=== PATIENT | female | born 1985 | race Hispanic/Latino ===

== ENCOUNTER 2019-08-09 18:16 | Emergency (ER) | payer OTHER ==
[~2019-08-09] VITALS: Ht 162.6 cm; Wt 63.5 kg
[2019-08-09 19:31] LABS: BASOPHILS # (AUTO) 0.1 (0.0-0.1); BASOPHILS % 0.5 % (0.0-1.0); EOSINOPHILS # (AUTO) 0.6 (0.0-0.4); EOSINOPHILS % 4.7 % (0.0-6.0); HEMATOCRIT 37.6 % (34.2-44.1); HEMOGLOBIN 12.6 g/dL (12.0-16.0); LYMPHOCYTES # (AUTO) 3.6 (1.0-3.2); LYMPHOCYTES % 30.8 % (18.0-39.1); MEAN CORPUSCULAR HEMOGLOBIN 30.1 pg (28-32); MEAN CORPUSCULAR HGB CONC 33.5 g/dL (31-35); MEAN CORPUSCULAR VOLUME 89.7 fL (81-99); MONOCYTES # (AUTO) 0.7 (0.2-0.8); NEUTROPHILS # (AUTO) 6.8 (2.1-6.9); NEUTROPHILS % 57.7 % (38.7-80.0); PLATELET COUNT 332 x10e3/uL (140-360); RED BLOOD COUNT 4.19 x10e6/uL (3.6-5.1); RED CELL DISTRIBUTION WIDTH 13.5 % (11.7-14.4)
[2019-08-09 19:52] LABS: BILIRUBIN,URINE NEGATIVE (NEGATIVE); CLARITY,URINE SL CLOUDY (CLEAR); COLOR,URINE YELLOW (YELLOW); KETONES,URINE NEGATIVE (NEGATIVE); LEUKOCYTE ESTERASE ,URINE NEGATIVE (NEGATIVE); NITRITE,URINE POSITIVE (NEGATIVE); PROTEIN,URINE DIPSTICK NEGATIVE (NEGATIVE); URINE UROBILINOGEN 0.2 mg/dL (0.2 - 1)
[2019-08-09 20:03] LABS: BACTERIA,URINE MANY /HPF; WBC,URINE (MAN) 0-5 /HPF (0-5)
[2019-08-09 20:27] VITALS: BP 107/68
== END 2019-08-09 20:34 | disposition home or self-care (01) ==
LOC: ER 18:16
DX: O20.0 Threatened abortion (principal); F17.200 Nicotine dependence, unspecified, uncomplicated
CPT/HCPCS: 36415; 81001; 84702; 85025; 99283

== ENCOUNTER → 2019-09-27 | Outpatient (CLI) | payer OTHER ==
[~2019-09-27] MED LIST: IOPAMIDOL 370 MG/ML 200 ML INFUS..BTL INJ ONE; SODIUM CHLORIDE 0.9% 50ML 50 ML ONE
--- NOTE | 2019-09-27 17:44 | Diagnostic Imaging Report ---
EXAM: CT Abdomen and Pelvis WITH intravenous contrast INDICATION: Inguinal hernia COMPARISON: None. TECHNIQUE: Abdomen and pelvis were scanned utilizing a multidetector helical scanner from the lung base to the pubic symphysis after administration of IV contrast. Coronal and sagittal reformations were obtained. Routine protocol was performed. Scan was performed during portal venous phase. IV CONTRAST: 100mL of Isovue 370 ORAL CONTRAST: Water RADIATION DOSE: Total DLP: 615.5 mGy*cm Dose modulation, iterative reconstruction, and/or weight based adjustment of the mA/kV was utilized to reduce the radiation dose to as low as reasonably achievable. FINDINGS: LOWER THORAX: Normal. HEPATOBILIARY: No focal hepatic lesions. No biliary ductal dilatation. Status post cholecystectomy. SPLEEN: No splenomegaly. PANCREAS: No focal masses or ductal dilatation. ADRENALS: No adrenal nodules. KIDNEYS/URETERS: No hydronephrosis, stones, or solid mass lesions. PELVIC ORGANS/BLADDER: Unremarkable. PERITONEUM / RETROPERITONEUM: Trace free fluid in the pelvis. No free air. LYMPH NODES: No lymphadenopathy. VESSELS: Unremarkable. GI TRACT: No abnormal bowel thickening. No bowel obstruction. Normal appendix. BONES AND SOFT TISSUES: No acute osseous injury. No suspicious lytic or blastic lesions. IMPRESSION: No acute findings in the abdomen or pelvis. Signed by: Julian Hughes MD on 09/27/2019 5:41 PM
== END ==
LOC: CT 15:46
PROVIDERS: ATTEND Family Medicine
DX: R10.2 Pelvic and perineal pain (principal)
CPT/HCPCS: 74177; 81025; Q9967

== ENCOUNTER → 2020-01-19 | Outpatient (CLI) | payer BC ==
--- NOTE | 2020-01-19 10:15 | Diagnostic Imaging Report ---
EXAM: Focused Soft Tissue Ultrasound Evaluation of the right neck INDICATION: Right neck lymphadenopathy COMPARISON: None TECHNIQUE: Salas scale, color Doppler images of the right neck soft tissues were obtained. FINDINGS: There is a 8 x 3 mm physiologic appearing lymph node in the right neck in the patient's area of clinical concern. Compared to prior outside imaging, this lymph node is decreased in size, favoring a benign etiology. IMPRESSION: 8 x 3 mm physiologic appearing lymph node, decreased in size compared to outside imaging. Interval decrease in size favors a benign etiology. After discussion with the patient decision was made to forego biopsy at the present time. If clinical concern persists or the lymph node increases in size on future follow-up imaging, biopsy can be reconsidered. Signed by: Julian Hughes MD on 01/19/2020 10:14 AM
== END ==
LOC: US 08:16
PROVIDERS: ATTEND Family Medicine
DX: R59.0 Localized enlarged lymph nodes (principal)
CPT/HCPCS: 76536

== ENCOUNTER → 2021-12-19 | Outpatient (CLI) | payer BC | LOC: NM 10:11 | PROVIDERS: ATTEND Internal Medicine Gastroenterology | DX: R10.13 Epigastric pain (principal); E66.3 Overweight; Z71.3 Dietary counseling and surveillance | CPT/HCPCS: 78264; 81025; A9541 ==

== ENCOUNTER 2022-08-11 20:13 | Emergency (ER) | payer BC ==
[~2022-08-11] VITALS: Ht 162.6 cm; Wt 63.5 kg
[2022-08-11] MEDS ORDERED: KETOROLAC TROMETHAMINE 30 MG/ML VIAL IV STA (20:55)
[2022-08-11 21:01] LABS: BASOPHILS % 0.4 % (0.0-1.0); EOSINOPHILS # (AUTO) 0.4 (0.0-0.4); HEMATOCRIT 35.4 % (34.2-44.1); HEMOGLOBIN 10.8 g/dL (12.0-16.0); LYMPHOCYTES # (AUTO) 4.4 (1.0-3.2); LYMPHOCYTES % 55.3 % (18.0-39.1); MEAN CORPUSCULAR HEMOGLOBIN 26.3 pg (28-32); MEAN CORPUSCULAR HGB CONC 30.5 g/dL (31-35); MEAN CORPUSCULAR VOLUME 86.1 fL (81-99); MONOCYTES # (AUTO) 0.5 (0.2-0.8); MONOCYTES % 5.9 % (4.4-11.3); NEUTROPHILS # (AUTO) 2.6 (2.1-6.9); NEUTROPHILS % 33.1 % (38.7-80.0); PLATELET COUNT 341 x10e3/uL (140-360); RED BLOOD COUNT 4.11 x10e6/uL (3.6-5.1); RED CELL DISTRIBUTION WIDTH 16.3 % (11.7-14.4)
[2022-08-11 21:17] LABS: CLARITY,URINE HAZY (CLEAR); COLOR,URINE YELLOW (YELLOW); KETONES,URINE NEGATIVE (NEGATIVE); LEUKOCYTE ESTERASE ,URINE NEGATIVE (NEGATIVE); NITRITE,URINE NEGATIVE (NEGATIVE); PROTEIN,URINE DIPSTICK NEGATIVE (NEGATIVE); URINE UROBILINOGEN 0.2 mg/dL (0.2 - 1)
[2022-08-11 21:19] LABS: ALBUMIN 3.7 g/dL (3.5-5.0); ALBUMIN/GLOBULIN RATIO 1.1 (0.8-2.0); ANION GAP 13.7 mmol/L (8-16); CALCIUM 8.7 mg/dL (8.4-10.2); CREATININE, SERUM 0.73 mg/dL (0.57-1.11); POTASSIUM 3.7 mmol/L (3.5-5.1)
[2022-08-11 21:25] LABS: AMORPHOUS SEDIMENT,URINE MODERATE (FEW); BACTERIA,URINE FEW /HPF
[2022-08-11] MEDS ORDERED: PEPCID20 MG PO (23:00)
[2022-08-11 23:01] VITALS: BP 107/71
[2022-08-12] MEDS ORDERED: IOPAMIDOL 370 MG/ML 100 ML INFUS..BTL INJ ONE (04:41)
== END 2022-08-11 22:58 | disposition home or self-care (01) ==
LOC: ER 20:36
DX: R10.11 Right upper quadrant pain (principal)
CPT/HCPCS: 36415; 74177; 80053; 81001; 81025; 83690; 85025; 99284; J1885; Q9967

== ENCOUNTER 2023-03-07 18:17 | Inpatient (IN) | payer BC ==
[~2023-03-07] VITALS: Ht 162.6 cm; Wt 63.5 kg
[~2023-03-07 18:17] MED LIST changes: -IOPAMIDOL 370 MG/ML 200 ML INFUS..BTL INJ ONE; +PEPCID20 MG PO; -SODIUM CHLORIDE 0.9% 50ML 50 ML ONE
[2023-03-07] MEDS ORDERED: ONDANSETRON HCL INJ 2MG/ML 2ML 2 MG/ML VIAL IV STA (18:35)
[2023-03-07] MEDS ORDERED: FAMOTIDINE 20 MG/2 ML VIAL IV STA (18:35)
[2023-03-07] MEDS ORDERED: DONNATAL/LIDOCAINE/MAALOX 30 ML SUSP PO ONE (18:45)
[2023-03-07] MEDS ORDERED: SODIUM CHLORIDE 0.9% 1000ML 1,000 ML IV ONE ×2 (18:45→20:30)
[2023-03-07 18:50] LABS: BASOPHILS % 0.2 % (0.0-1.0); EOSINOPHILS # (AUTO) 0.1 (0.0-0.4); HEMATOCRIT 39.5 % (34.2-44.1); LYMPHOCYTES # (AUTO) 2.5 (1.0-3.2); LYMPHOCYTES % 20.3 % (18.0-39.1); MEAN CORPUSCULAR HEMOGLOBIN 27.5 pg (28-32); MEAN CORPUSCULAR HGB CONC 32.9 g/dL (31-35); MEAN CORPUSCULAR VOLUME 83.5 fL (81-99); MONOCYTES # (AUTO) 0.8 (0.2-0.8); MONOCYTES % 6.6 % (4.4-11.3); NEUTROPHILS # (AUTO) 8.6 (2.1-6.9); NEUTROPHILS % 71.6 % (38.7-80.0); PLATELET COUNT 377 x10e3/uL (140-360); RED BLOOD COUNT 4.73 x10e6/uL (3.6-5.1)
[2023-03-07 19:02] LABS: ALANINE AMINOTRANSFERASE 573 IU/L (0-55); ALBUMIN/GLOBULIN RATIO 1.1 (0.8-2.0); ALKALINE PHOSPHATASE 287 IU/L (40-150); ANION GAP 15.6 mmol/L (8-16); BLOOD UREA NITROGEN 9 mg/dL (7-26); BUN/CREATININE RATIO 13 (6-25); CALCIUM 9.1 mg/dL (8.4-10.2); CARBON DIOXIDE 23 mmol/L (22-29); CHLORIDE 102 mmol/L (98-107); CREATININE, SERUM 0.67 mg/dL (0.57-1.11); GLUCOSE 166 mg/dL (74-118); POTASSIUM 3.6 mmol/L (3.5-5.1); SODIUM 137 mmol/L (136-145)
[2023-03-07] MEDS ORDERED: MAGNESIUM/ALUMINUM/SIMETHICONE 30 ML UDC ONE (19:02)
[2023-03-07] MEDS ORDERED: BELLADONNA ALK/PHENOBARBITAL 5 ML UDC ONE (19:02)
[2023-03-07] MEDS ORDERED: LIDOCAINE VISC 2% SOLN 15 ML UDC ONE (19:02)
[2023-03-07] MEDS ORDERED: IOPAMIDOL 370 MG/ML 100 ML INFUS..BTL INJ ONE (19:11)
[2023-03-07] MEDS ORDERED: Morphine 4mg INJECTION 4 MG/ML INJ IV ONE ×2 (19:15→20:30)
[2023-03-07 19:20] LABS: CLARITY,URINE HAZY (CLEAR); COLOR,URINE YELLOW (YELLOW); LEUKOCYTE ESTERASE ,URINE TRACE (NEGATIVE); NITRITE,URINE POSITIVE (NEGATIVE); PROTEIN,URINE DIPSTICK 2+ (NEGATIVE)
[2023-03-07 19:21] LABS: BACTERIA,URINE MANY /HPF; KETONES,URINE TRACE (NEGATIVE); RBC,URINE 0-5 /HPF (0-5); URINE UROBILINOGEN 1 mg/dL (0.2 - 1)
[2023-03-07 19:22] LABS: EPITHELIAL CELLS,URINE FEW /LPF
[2023-03-07 20:14] LABS: LIPASE 9215 U/L (8-78)
[2023-03-07] MEDS ORDERED: DIPHENHYDRAMINE HCL INJ 50 MG/ML VIAL IV ONE (20:30)
[2023-03-07] MEDS ORDERED: METOCLOPRAMIDE HCL 10 MG/2ML VIAL IV ONE (20:30)
[2023-03-07] MEDS ORDERED: ONDANSETRON HCL INJ 2MG/ML 2ML 2 MG/ML VIAL IV PRN (21:00)
[2023-03-07] MEDS ORDERED: SODIUM CHLORIDE 0.9% 1000ML 1,000 ML IV SCH (21:00)
[2023-03-07 22:10] VITALS: BP 128/74
[2023-03-07 22:12] VITALS: BP 128/74
[2023-03-07 22:19] VITALS: BP 128/74
[2023-03-07 22:23] VITALS: BP 128/74
[2023-03-07 22:25] VITALS: BP 128/74
[2023-03-07 22:47] VITALS: BP 128/74
[2023-03-08] VITALS (8 sets, daily range): BP systolic 98–127; BP diastolic 62–80
[2023-03-08] MEDS ORDERED: ACETAMINOPHEN 325 MG TAB PO PRN (02:30)
[2023-03-08] MEDS ORDERED: MELATONIN 3 MG TAB PO PRN (02:30)
[2023-03-08] MEDS ORDERED: HYDRALAZINE HCL 20 MG/ML VIAL IV PRN (02:30)
[2023-03-08] MEDS ORDERED: Morphine 2mg Syringe 2 MG/ML SYR IV PRN (02:30)
[2023-03-08] MEDS ORDERED: GUAIFENESIN/DEXTROMETHORPHAN LIQD 5 ML UDC PO PRN (02:30)
[2023-03-08] MEDS ORDERED: ALBUTEROL/IPRATROPIUM 3 ML NEB NEB PRN (02:30)
[2023-03-08] MEDS: LACTATED RINGER'S 1,000 ML INJ SCH ×7 (03:38→21:54)
[2023-03-08 06:22] LABS: BASOPHILS % 0.2 % (0.0-1.0); HEMATOCRIT 33.5 % (34.2-44.1); LYMPHOCYTES # (AUTO) 1.9 (1.0-3.2); LYMPHOCYTES % 10.5 % (18.0-39.1); MEAN CORPUSCULAR HEMOGLOBIN 27.7 pg (28-32); MEAN CORPUSCULAR HGB CONC 32.8 g/dL (31-35); MEAN CORPUSCULAR VOLUME 84.4 fL (81-99); MONOCYTES # (AUTO) 0.8 (0.2-0.8); MONOCYTES % 4.5 % (4.4-11.3); NEUTROPHILS % 84.3 % (38.7-80.0); PLATELET COUNT 305 x10e3/uL (140-360); RED BLOOD COUNT 3.97 x10e6/uL (3.6-5.1); RED CELL DISTRIBUTION WIDTH 16.3 % (11.7-14.4)
[2023-03-08 06:44] LABS: ALBUMIN 3.2 g/dL (3.5-5.0); ANION GAP 14.1 mmol/L (8-16); CALCIUM 8.2 mg/dL (8.4-10.2); CHOL/HDL RATIO 2.1 (3.0-3.6); CREATININE, SERUM 0.63 mg/dL (0.57-1.11); POTASSIUM 4.1 mmol/L (3.5-5.1)
[2023-03-08] MEDS: MULTIVITAMINS/MINERALS TAB PO SCH (08:34)
[2023-03-08] MEDS: ENOXAPARIN SOD INJ 40 MG/0.4 ML SYR SC SCH (17:53)
[2023-03-08] MEDS: Morphine 2mg Syringe 2 MG/ML SYR IV PRN (21:54)
[2023-03-09] VITALS (7 sets, daily range): BP systolic 101–111; BP diastolic 63–82
[2023-03-09] MEDS: LACTATED RINGER'S 1,000 ML INJ SCH ×5 (04:53→21:55)
[2023-03-09 06:06] LABS: BASOPHILS % 0.4 % (0.0-1.0); EOSINOPHILS # (AUTO) 0.3 (0.0-0.4); EOSINOPHILS % 2.8 % (0.0-6.0); HEMATOCRIT 30.9 % (34.2-44.1); HEMOGLOBIN 9.8 g/dL (12.0-16.0); LYMPHOCYTES # (AUTO) 3.2 (1.0-3.2); LYMPHOCYTES % 30.2 % (18.0-39.1); MEAN CORPUSCULAR HEMOGLOBIN 27.6 pg (28-32); MEAN CORPUSCULAR HGB CONC 31.7 g/dL (31-35); MONOCYTES # (AUTO) 0.6 (0.2-0.8); MONOCYTES % 5.7 % (4.4-11.3); NEUTROPHILS # (AUTO) 6.5 (2.1-6.9); NEUTROPHILS % 60.4 % (38.7-80.0); PLATELET COUNT 289 x10e3/uL (140-360); RED BLOOD COUNT 3.55 x10e6/uL (3.6-5.1); RED CELL DISTRIBUTION WIDTH 16.7 % (11.7-14.4)
[2023-03-09 06:51] LABS: ALBUMIN 3.1 g/dL (3.5-5.0); ALBUMIN/GLOBULIN RATIO 1.2 (0.8-2.0); ANION GAP 12.5 mmol/L (8-16); CALCIUM 8.3 mg/dL (8.4-10.2); CREATININE, SERUM 0.67 mg/dL (0.57-1.11); MAGNESIUM 1.9 MG/DL (1.3-2.1); POTASSIUM 4.5 mmol/L (3.5-5.1)
[2023-03-09] MEDS: MULTIVITAMINS/MINERALS TAB PO SCH (08:02)
[2023-03-09] MEDS ORDERED: GADOBENATE DIMEGLUMINE 1 ML IV ONE (08:21)
[2023-03-09] MEDS ORDERED: HYDROCODONE/APAP 5MG-325MG TAB PO PRN (11:45)
[2023-03-09] MEDS: ENOXAPARIN SOD INJ 40 MG/0.4 ML SYR SC SCH (16:52)
[2023-03-09] MEDS: Morphine 2mg Syringe 2 MG/ML SYR IV PRN (23:21)
[2023-03-10 00:57] LABS: % IRON SATURATION 35 % (15-50); IRON 123 ug/dL (50-170); TOTAL IRON BINDING CAPACITY 349 ug/dL (261-478); TRANSFERRIN 249 mg/dL (180-382)
[2023-03-10 04:00] VITALS: BP 102/72
[2023-03-10] MEDS: LACTATED RINGER'S 1,000 ML INJ SCH ×4 (04:16→15:57)
[2023-03-10 06:42] LABS: BASOPHILS % 0.4 % (0.0-1.0); EOSINOPHILS # (AUTO) 0.4 (0.0-0.4); EOSINOPHILS % 4.8 % (0.0-6.0); HEMATOCRIT 31.7 % (34.2-44.1); HEMOGLOBIN 10.3 g/dL (12.0-16.0); LYMPHOCYTES % 38.6 % (18.0-39.1); MEAN CORPUSCULAR HEMOGLOBIN 28.1 pg (28-32); MEAN CORPUSCULAR HGB CONC 32.5 g/dL (31-35); MEAN CORPUSCULAR VOLUME 86.4 fL (81-99); MONOCYTES # (AUTO) 0.6 (0.2-0.8); MONOCYTES % 7.8 % (4.4-11.3); NEUTROPHILS # (AUTO) 3.8 (2.1-6.9); NEUTROPHILS % 48.1 % (38.7-80.0); PLATELET COUNT 286 x10e3/uL (140-360); RED BLOOD COUNT 3.67 x10e6/uL (3.6-5.1); RED CELL DISTRIBUTION WIDTH 16.3 % (11.7-14.4)
[2023-03-10 07:20] LABS: ALANINE AMINOTRANSFERASE 192 IU/L (0-55); ALBUMIN 3.1 g/dL (3.5-5.0); ALBUMIN/GLOBULIN RATIO 0.9 (0.8-2.0); ALKALINE PHOSPHATASE 179 IU/L (40-150); ANION GAP 14.1 mmol/L (8-16); BLOOD UREA NITROGEN < 5 mg/dL (7-26); CALCIUM 8.7 mg/dL (8.4-10.2); CARBON DIOXIDE 23 mmol/L (22-29); CHLORIDE 106 mmol/L (98-107); CREATININE, SERUM 0.67 mg/dL (0.57-1.11); GLUCOSE 73 mg/dL (74-118); LIPASE 128 U/L (8-78); POTASSIUM 4.1 mmol/L (3.5-5.1); SODIUM 139 mmol/L (136-145)
[2023-03-10 07:22] LABS: BUN/CREATININE RATIO 7 (6-25)
[2023-03-10 08:09] VITALS: BP 112/70
[2023-03-10 08:28] VITALS: BP 112/70
[2023-03-10] MEDS: MULTIVITAMINS/MINERALS TAB PO SCH (09:55)
[2023-03-10 11:56] VITALS: BP 96/85
[2023-03-10] MEDS ORDERED: ONDANSETRON HCL 4 MG ORAL DISINTEGRATING TAB PO PRN (13:15)
[2023-03-10 16:02] VITALS: BP 112/70
[2023-03-11] MEDS ORDERED: PANTOPRAZOLE SOD 40 MG TABEC PO SCH (07:30)
== END 2023-03-10 18:40 | disposition home or self-care (01) | DRG 440 ==
LOC: ER 18:24 → ERHOLD 20:57 → MED/SURG2 21:52
PROVIDERS: ADMIT Internal Medicine; ATTEND Internal Medicine
DX: K85.90 Acute pancreatitis without necrosis or infection, unspecified (principal); K21.9 Gastro-esophageal reflux disease without esophagitis; Z20.822 Contact with and (suspected) exposure to COVID-19; F17.210 Nicotine dependence, cigarettes, uncomplicated
CPT/HCPCS: 0223U; 36415; 71045; 74177; 74183; 80053; 80061; 81001; 82607; 82746; 83540; 83615; 83690; 83735; 84100; 84466; 84478; 84702; 85025; 85045; 93005; 94799; 96361; 99284; J1200; J1650; J2270; J2405; J2543; J2765; J7030; Q9967